=== PATIENT | male | born 1955 | race Caucasian/White ===

== ENCOUNTER → 2019-07-15 | Outpatient (REF) | payer OTHER ==
[~2019-07-15] MED LIST: COLA100C5 PO; MYLICON PO; OXYIR PO; TYLE325T5 PO; no home meds
== END ==
LOC: M LAB REF 09:36
PROVIDERS: ATTEND Ophthalmology
DX: H02.831 Dermatochalasis of right upper eyelid (principal); H02.834 Dermatochalasis of left upper eyelid

== ENCOUNTER → 2020-01-15 | Outpatient (CLI) | payer BC, OTHER | LOC: M LABSMTC 10:17 | PROVIDERS: ATTEND Family Medicine | DX: Z11.59 Encounter for screening for other viral diseases (principal); Z20.828 Contact with and (suspected) exposure to other viral communicable diseases ==

== ENCOUNTER → 2024-04-25 | Outpatient (CLI) | payer BC ==
[~2024-04-25] MED LIST changes: +AMOX875T2; +BACTDSTA; +BETA0.0543; +FLUTISP
== END ==
LOC: M LAB 16:21
PROVIDERS: ATTEND Internal Medicine Hematology & Oncology
DX: C83.90 Non-follicular (diffuse) lymphoma, unspecified, unspecified site (principal); R53.83 Other fatigue

== ENCOUNTER → 2024-05-09 | Outpatient (CLI) | payer BC | LOC: M PLARAD 11:09 | PROVIDERS: ATTEND Internal Medicine Hematology & Oncology | DX: C82.98 Follicular lymphoma, unspecified, lymph nodes of multiple sites (principal) | CPT/HCPCS: 78815; A9552 ==

== ENCOUNTER → 2024-05-30 | Outpatient (REF) | payer OTHER, MEDICARE | LOC: M SFHCPLAZ 16:53 | PROVIDERS: ATTEND Internal Medicine Infectious Disease | DX: L02.92 Furuncle, unspecified (principal) ==

== ENCOUNTER → 2024-05-31 | Outpatient (REF) | payer BC, MEDICARE, OTHER | LOC: M SFHCPLAZ 15:06 | PROVIDERS: ATTEND Internal Medicine Infectious Disease | DX: L02.92 Furuncle, unspecified (principal) ==

== ENCOUNTER → 2024-06-11 | Outpatient (REF) | payer BC, OTHER, MEDICARE ==
[~2024-06-11] MED LIST changes: +AQUA10CR TOP; +CLOT1CRE56 TOP
== END ==
LOC: M SFHCPLAZ 15:28
PROVIDERS: ATTEND Internal Medicine Infectious Disease
DX: B83.9 Helminthiasis, unspecified (principal)

== ENCOUNTER → 2024-06-12 | Outpatient (REF) | payer BC, MEDICARE, OTHER ==
[~2024-06-12] MED LIST changes: -AQUA10CR TOP; -CLOT1CRE56 TOP
== END ==
LOC: M SFHCPLAZ 15:25
PROVIDERS: ATTEND Internal Medicine Infectious Disease
DX: B83.9 Helminthiasis, unspecified (principal)

== ENCOUNTER → 2024-07-07 | Outpatient (CLI) | payer BC, MEDICARE ==
[~2024-07-07] MED LIST changes: +AQUA10CR TOP; +CLOT1CRE56 TOP
[2024-07-07 17:35] LABS: BASO % 0.7 % (0.0-1.0); EOS # 0.1 10^3/uL (0.0-0.5); EOS % 2.1 % (0.0-3.0); HEMATOCRIT 37.9 % (42.0-52.0); HEMOGLOBIN 12.7 g/dl (13.5-17.5); LYMPH # 0.6 10^3/uL (1.5-5.0); MEAN CORPUSCULAR HEMOGLOBIN 32.7 pg (27.0-33.0); MEAN CORPUSCULAR HGB CONC 33.5 g/dl (32.0-36.5); MEAN CORPUSCULAR VOLUME 97.7 fl (80.0-96.0); MONO # 0.4 10^3/uL (0.0-0.8); MONO % 9.7 % (2.0-8.0); NEUTROPHILS # 3.1 10^3/uL (1.5-8.5); PLATELET COUNT, AUTOMATED 203 10^3/uL (150-450); RED BLOOD COUNT 3.88 10^6/uL (4.30-6.10); WHITE BLOOD COUNT 4.2 10^3/uL (4.0-10.0)
[2024-07-07 18:04] LABS: LDH LACTATE DEHYDROGENASE 154 U/L (120-246); TOTAL IRON BINDING CAPACITY 243 UG/DL (250-425)
[2024-07-07 18:05] LABS: ALBUMIN 3.6 G/DL (3.2-5.2); ALKALINE PHOSPHATASE 83 U/L (46-116); ALT/SGPT 15 U/L (7.0-40); AST/SGOT 15 U/L (<34); BILIRUBIN,TOTAL 0.5 MG/DL (0.3-1.2); BLOOD UREA NITROGEN 19 MG/DL (9-23); CALCIUM LEVEL 9.1 MG/DL (8.3-10.6); CARBON DIOXIDE LEVEL 28 MMOL/L (20-31); CHLORIDE LEVEL 111 MMOL/L (98-107); CREATININE FOR GFR 0.91 MG/DL (0.70-1.30); GLOMERULAR FILTRATION RATE > 60.0 (>49); GLUCOSE, FASTING 114 MG/DL (74-106); IRON (FE) 104 UG/DL (65-175); PERCENT SATURATION 42.8 % (19.7-50.0); POTASSIUM SERUM 3.7 MMOL/L (3.5-5.1); SODIUM LEVEL 142 MMOL/L (136-145); TOTAL PROTEIN 6.2 G/DL (5.7-8.2)
[2024-07-07 18:09] LABS: FERRITIN 268.4 NG/ML (10.5-307.3)
== END ==
LOC: M PLALAB 14:32
PROVIDERS: ATTEND Internal Medicine Hematology & Oncology
DX: C82.90 Follicular lymphoma, unspecified, unspecified site (principal)

== ENCOUNTER → 2025-05-01 | Outpatient (CLI) | payer OTHER, MEDICARE, BC | LOC: M PLARAD 12:08 | PROVIDERS: ATTEND Student in an Organized Health Care Education/Training Program | DX: C82.9A Follicular lymphoma, unspecified, in remission (principal) | CPT/HCPCS: 78815; A9552 ==